=== PATIENT | female | born 1935 | race Caucasian/White ===

== ENCOUNTER 2022-03-08 13:43 | Outpatient (CLI) | payer MEDICARE | END 2022-03-08 13:44 | disposition home or self-care (01) | LOC: CSHLAB 13:43 | PROVIDERS: ATTEND Nurse Practitioner Family | DX: R06.02 Shortness of breath (principal); Z20.822 Contact with and (suspected) exposure to COVID-19 | CPT/HCPCS: 87811 ==

== ENCOUNTER 2022-03-12 07:33 | Outpatient (CLI) | payer MEDICARE | END 2022-03-12 07:34 | disposition home or self-care (01) | LOC: CSHCP 07:33 | PROVIDERS: ATTEND Nurse Practitioner Family | DX: R06.02 Shortness of breath (principal); J44.9 Chronic obstructive pulmonary disease, unspecified | CPT/HCPCS: 94060; 94726; 94729; 94760 ==

== ENCOUNTER 2023-08-14 15:39 | Outpatient (CLI) | payer MEDICARE | END 2023-08-14 15:40 | disposition home or self-care (01) | LOC: CSHMRI 15:39 | PROVIDERS: ATTEND Orthopaedic Surgery | DX: M48.061 Spinal stenosis, lumbar region without neurogenic claudication (principal); M47.816 Spondylosis without myelopathy or radiculopathy, lumbar region; K83.8 Other specified diseases of biliary tract | CPT/HCPCS: 72148 ==